=== PATIENT | female | born 1955 | race Caucasian/White ===

== ENCOUNTER 2018-05-20 16:48 | Inpatient (IN) | payer MEDICARE, MEDICAID ==
[~2018-05-20] VITALS: Ht 152.4 cm; Wt 71.2 kg
[2018-05-20] MEDS ORDERED: CLON2TAB11 PO (17:09)
[2018-05-20] MEDS ORDERED: NITR100C11 PO (17:09)
[2018-05-20] MEDS ORDERED: LATUDA PO (17:09)
[2018-05-20] MEDS ORDERED: ATOR40TA PO (17:09)
[2018-05-20] MEDS ORDERED: LEVO100T10 PO (17:09)
[2018-05-20] MEDS ORDERED: DOCU100C36 PO (17:09)
--- NOTE | 2018-05-20 17:23 | NUR ---
PT IS IN ROOM #2A. DR GAYTAN EVALUATED THE PT.
[2018-05-20] MEDS ORDERED: predniSONE 20 MG TABLET PO ONE (17:30)
[2018-05-20] MEDS ORDERED: HYDROCODONE/APAP 10-325 MG TABLET PO ONE (17:30)
[2018-05-20] MEDS ORDERED: ONDANSETRON ODT 4 MG TAB.RAPDIS SL ONE (17:30)
[2018-05-20 18:00] LABS: BASOPHILS % (AUTO) 0.8 % (0.0-2.0); EOSINOPHILS # (AUTO) 0.1 K/uL (0.0-0.7); EOSINOPHILS % (AUTO) 1.6 % (0.0-7.0); HEMATOCRIT 34.6 % (31.2-41.9); HEMOGLOBIN 11.7 g/dL (10.9-14.3); LYMPHOCYTES # (AUTO) 1.9 K/uL (20.0-40.0); LYMPHOCYTES % (AUTO) 33.7 % (20.5-51.5); MEAN CORPUSCULAR HEMOGLOBIN 27.7 uug (24.7-32.8); MEAN CORPUSCULAR HGB CONC 34 g/dL (32.3-35.6); MEAN CORPUSCULAR VOLUME 81.9 fL (75.5-95.3); MONOCYTES # (AUTO) 0.4 K/uL (2.0-10.0); MONOCYTES % (AUTO) 7.4 % (0.0-11.0); NEUTROPHILS # (AUTO) 3.2 K/uL (1.8-8.9); NEUTROPHILS % (AUTO) 56.5 % (38.5-71.5); PLATELET COUNT (AUTO) 238 K/uL (179-408); RED BLOOD CELL COUNT(AUTO) 4.23 MIL/uL (3.63-4.92); WHITE BLOOD COUNT (AUTO) 5.6 K/uL (3.8-11.8)
[2018-05-20 18:06] LABS: *BILIRUBIN,URIN NEGATIVE (NEGATIVE); *BLOOD, URINE NEGATIVE (NEGATIVE); *COLOR,URINE YELLOW (YELLOW); *KETONES,URINE NEGATIVE (NEGATIVE); *PROTEIN,URINE NEGATIVE (NEGATIVE); *UROBILINOGEN,URINE 0.2 E.U./dl (NORMAL); LEUKOCYTE ESTERASE ,URINE TRACE (NEGATIVE); NITRITE, URINE NEGATIVE (NEGATIVE); UGLUCOSE NEGATIVE (NEGATIVE)
[2018-05-20 18:11] LABS: *CLARITY,URINE SLIGHTLY CLOUDY (CLEAR)
[2018-05-20 18:14] LABS: CREATININE 1.4 mg/dL (0.6-1.3)
[2018-05-20 18:15] LABS: BACTERIA,URINE FEW /HPF (NONE SEEN); RBC,URINE 0-3 /HPF (0-3); SQUAMOUS EPITHELIAL CELL,UR MODERATE /HPF (NONE SEEN)
[2018-05-20 18:20] LABS: BILIRUBIN,TOTAL 0.4 mg/dL (0.2-1.0)
--- NOTE | 2018-05-20 18:58 | NUR ---
REPORT GIVEN TO AIRPLANE INSPECTOR RN.
--- NOTE | 2018-05-20 19:50 | NUR ---
Pt. admitted to [facility] , under care of Dr. Doss/[employer]. Pt on 5150 hold DTO. Diagnosis: Psychosis Belongs List completed. MRSA swab done.
[2018-05-20 20:00] VITALS: BP 143/72
--- NOTE | 2018-05-20 21:00 | NUR ---
AT APPROX 1945, ADMITTED 62 YEARS OLD FEMALE FROM [facility] ON A 5150 HOLD FOR DTS. HOLD STARTED ON 05/20/18 AT 1400 AND WILL END ON 05/23/18 AT 1400. PER HOLD, PATIENT WENT TO [facility] ER D/T SEVERE BACK PAIN, BUT THEN, SHE REPORTED TO THE NURSE THAT, "I AM READY TO ." "I WANT TO END ALL." SHE ALSO REPORTED THAT LAST WEEK SHE WAS [facility] AFTER SHE OD ON 32 CLONAZEPAM 1MG. PER HOLD, PATIENT HAS BEEN HOPELESS SINCE LOST OF HER APARTMENT. PT HAS A HX OF BIPOLAR DISORDER. HER LAST RX OF LATUDA SHE STATED, "DID NOT AGREE WITH ME". FACE TO FACE ASSESSMENT WAS DONE. AT TIME OF ADMISSION, PATIENT NOTED A/O X 2 (NAME AND SITUATION) SHE WAS CRYING, LOW MOOD, LABILE BX BLUNTED AFFECT. UPONM INTERVIEW, SHE STATED, "I WANT TO ". WHEN ASK ABOUT A PLAN, SHE STATED, "THE MOMENT I AM OUT OF HERE I AM GOING TO TAKE LOTS OF PILL". PATIENT WAS ABLE TO SIGN ADMISSION PAPERS. SHE REFUSED TO HAVE ANY FAMILY MEMBERS NOTIFY OF HER ADMISSION TO [facility]. SHE STATED, "I DO NOT WANT THEM TO KNOW I AM HERE BECAUSE THEY ARE ALREADY MAD AT ME." PATIENT WAS REASSURED AND REDIRECTED. SHE REFUSED FLU VACCINE. PATIENT IS UNDER THE CARE OF DR GUY. YARELI REDDY TO MONITOR.
[2018-05-20] MEDS: CLONAZEPAM 0.5 MG TABLET PO PRN (21:21)
--- NOTE | 2018-05-20 21:25 | NUR ---
PATIENT NOTED ANXIOUS AGITATED CRYING, KLONOPIN 0.5MG PO PRN WAS GIVEN. WILL CONTINUE TO MONITOR.
--- NOTE | 2018-05-20 22:05 | NUR ---
PATIENT C/O LOWER BACK PAIN, SHE STATED 7/10 IN THE PAIN INTENSITY SCALE. PT HAD NORCO EARLIER IN THE ER AT APPROX 1730. TYLENOL 650 MG PO PRN WAS GIVEN. WILL CONTINUE TO MONITOR.
[2018-05-20] MEDS: ACETAMINOPHEN 325 MG TABLET PO PRN (22:09)
[2018-05-20] MEDS: TEMAZEPAM 7.5 MG CAPSULE PO PRN (23:19)
--- NOTE | 2018-05-20 23:20 | NUR ---
PATIENT REPORTED THAT SHE WAS UNABLE TO FALL ASLEEP. TEMAZEPAM 7.5MG PO PRN WAS GIVEN FOR INSOMNIA. WILL CONTINUE TO MONITOR.
[2018-05-21] MEDS: ACETAMINOPHEN 325 MG TABLET PO PRN ×2 (05:12→10:57)
[2018-05-21] MEDS: CLONAZEPAM 0.5 MG TABLET PO PRN ×3 (05:17→18:37)
--- NOTE | 2018-05-21 06:44 | NUR ---
PATIENT SLEPT FOR APPROX 4.45 HRS THROUGH THE NIGHT. KLONOPIN 0.5MG PO PRN FOR ANXIETY WAS GIVEN AT APPROX 0530. WILL CONTINUE TO MONITOR ADRIANA
[2018-05-21 07:30] VITALS: BP 137/50
[2018-05-21] MEDS: DOCUSATE SODIUM 100 MG CAPSULE PO SCH (10:57)
[2018-05-21] MEDS: LEVOTHYROXINE SODIUM 100 MCG TABLET PO SCH (10:57)
[2018-05-21] MEDS: NITROFURANTOIN/NITROFURAN MAC 100 MG CAPSULE PO SCH ×2 (10:57→21:01)
[2018-05-21] MEDS: GABAPENTIN 100 MG CAPSULE PO SCH ×2 (11:16→16:25)
[2018-05-21] MEDS: CYCLOBENZAPRINE HCL 10 MG TABLET PO SCH ×2 (11:16→16:25)
[2018-05-21] MEDS: ARIPIPRAZOLE 5 MG TABLET PO SCH (16:28)
[2018-05-21] MEDS: NAPROXEN 250 MG TABLET PO PRN (16:34)
[2018-05-21 16:59] VITALS: BP 133/61
[2018-05-21 20:49] VITALS: BP 99/56
[2018-05-21] MEDS: ATORVASTATIN 40 MG TABLET PO SCH (21:01)
[2018-05-21] MEDS: TEMAZEPAM 7.5 MG CAPSULE PO PRN (21:01)
[2018-05-22] MEDS: CLONAZEPAM 0.5 MG TABLET PO PRN ×2 (02:49→09:53)
--- NOTE | 2018-05-22 06:04 | NUR ---
Pt stayed in her bed the entire shift except to come ask for meds or ice. Pt complained of pain in her back radiating down to her L leg. Pt states that the pain med the doctor has prescribed is not working. Pt req norco. Pt was informed that ad copy writer cannot give more meds before they are due and to speak to the doctor when he arrives. Pt also states that she has not had a BM in 6 days. Security Nurse offered PRN's but pt refused. Pt is req a specific med for constipation.
[2018-05-22] MEDS: LEVOTHYROXINE SODIUM 100 MCG TABLET PO SCH (06:53)
[2018-05-22 07:30] VITALS: BP 124/72
[2018-05-22] MEDS: DOCUSATE SODIUM 100 MG CAPSULE PO SCH ×2 (09:00→09:48)
[2018-05-22] MEDS: NITROFURANTOIN/NITROFURAN MAC 100 MG CAPSULE PO SCH ×2 (09:46→21:43)
[2018-05-22] MEDS: ARIPIPRAZOLE 5 MG TABLET PO SCH (09:47)
[2018-05-22] MEDS: CYCLOBENZAPRINE HCL 10 MG TABLET PO SCH ×3 (09:48→17:50)
[2018-05-22] MEDS: GABAPENTIN 100 MG CAPSULE PO SCH ×3 (09:48→17:51)
[2018-05-22] MEDS: ACETAMINOPHEN 325 MG TABLET PO PRN ×2 (09:54→17:50)
[2018-05-22] MEDS: MAGNESIUM HYDROXIDE 30 ML LIQUID UDC PO PRN (13:07)
[2018-05-22] MEDS: NAPROXEN 250 MG TABLET PO PRN (13:08)
[2018-05-22] MEDS ORDERED: BISACODYL 10 MG SUPP.RECT RC PRN (14:30)
[2018-05-22] MEDS ORDERED: CLONAZEPAM 0.5 MG TABLET PO PRN (14:45)
--- NOTE | 2018-05-22 16:05 | NUR ---
Firearms Report: Stenographer Secretary completed and submitted [employer] Firearms Report for 5150 DTS certification.
--- NOTE | 2018-05-22 16:19 | NUR ---
Initial Discharge Plan: Per patient, she feels she cannot live with sister because its not a good environment for me would like to go to a board and care or transitional housing. Sw, spoke with mother, Eileen Taylor and pt is probably still welcome to stay with sister, Eileen Arellano in [place]. Pt was supposed to be on a flight to [place] on 05/22/18 to reside with mother but missed flight due to hospitalization. TANVIR will collaborate with interdisciplinary team and MD to ensure pt receives a safe and adequate discharge.
[2018-05-22 16:22] VITALS: BP 124/70
[2018-05-22] MEDS ORDERED: TRAMADOL HCL 50 MG TABLET PO ONE (17:45)
[2018-05-22] MEDS: LIDOCAINE 5% PATCH TD SCH (17:50)
[2018-05-22] MEDS ORDERED: NAPROXEN 250 MG TABLET PO SCH (18:00)
--- NOTE | 2018-05-22 18:39 | NUR ---
patient very med seeking every 2 to 3 hours wanting narcotics any thing needs redirection c/o mid back pain and constipation recd mom and dulcolax suppository as ordered in room sleeping and up for meds only
[2018-05-22 19:30] VITALS: BP 127/71
[2018-05-22] MEDS: ATORVASTATIN 40 MG TABLET PO SCH (21:43)
[2018-05-22] MEDS: MIRALAX 17 GM POWD.PACK PO PRN (21:43)
[2018-05-22] MEDS: TRAMADOL HCL 50 MG TABLET PO SCH (21:44)
[2018-05-22] MEDS: TEMAZEPAM 7.5 MG CAPSULE PO PRN (21:51)
[2018-05-22] MEDS: CLONAZEPAM 1 MG TABLET PO PRN (22:52)
[2018-05-23] MEDS: MAG HYDROX/AL HYDROX/SIMETH 30 ML LIQUID UDC PO PRN ×3 (01:37→20:23)
[2018-05-23] MEDS: CLONAZEPAM 1 MG TABLET PO PRN ×3 (05:47→18:25)
[2018-05-23] MEDS: TRAMADOL HCL 50 MG TABLET PO SCH ×3 (05:47→21:27)
--- NOTE | 2018-05-23 06:03 | NUR ---
Pt still has not had a BM, pt received MOM, dulcolax suppository and miralax yesterday, it was not effective, pt is complaining of abdominal pain that is worsening 01/06, pt states this is the 7th or 8th day with no BM. EPIC doctor contacted at 5:55am, states placing a order for KUG (abominal X-ray), states that if it shows impaction recommend manual disimpaction. I will endorse to the next shift.
[2018-05-23] MEDS: LEVOTHYROXINE SODIUM 100 MCG TABLET PO SCH (06:26)
[2018-05-23 07:30] VITALS: BP 118/67
[2018-05-23] MEDS: NITROFURANTOIN/NITROFURAN MAC 100 MG CAPSULE PO SCH ×2 (08:34→20:24)
[2018-05-23] MEDS: CYCLOBENZAPRINE HCL 10 MG TABLET PO SCH ×3 (08:34→16:34)
[2018-05-23] MEDS: DOCUSATE SODIUM 100 MG CAPSULE PO SCH (08:34)
[2018-05-23] MEDS: GABAPENTIN 100 MG CAPSULE PO SCH ×3 (08:34→16:33)
[2018-05-23] MEDS: LIDOCAINE 5% PATCH TD SCH (08:34)
[2018-05-23] MEDS: ARIPIPRAZOLE 5 MG TABLET PO SCH (08:34)
[2018-05-23] MEDS: MAGNESIUM HYDROXIDE 30 ML LIQUID UDC PO PRN (10:26)
[2018-05-23] MEDS: LACTULOSE 20 G/30 ML LIQUID UDC PO SCH ×2 (11:33→20:25)
--- NOTE | 2018-05-23 14:50 | NUR ---
Discharge Planning: warm in worker spoke with patient this morning about discharge plan. Per patient, she would like to go to a board and care or independent living. Patient states she has $800-$850 to put toward facility cost. warm in worker reached out to Rupali [[phone]], social insurance analyst, at [facility] who states she will assist patient in finding a living facility. Per Rupali, she will be out to speak with patient tomorrow, 05/24/2018, at noon.
[2018-05-23] MEDS ORDERED: TEMAZEPAM 7.5 MG CAPSULE PO PRN (15:00)
[2018-05-23 16:23] VITALS: BP 115/65
[2018-05-23] MEDS: PANTOPRAZOLE SODIUM 40 MG TABLET.DR PO SCH (16:34)
--- NOTE | 2018-05-23 18:26 | NUR ---
Gps.Manager Flight- Patient moved her bowel this pm, claimed she probably will go some more , and she thinks she might need more laxative . Informed patient no need for laxative at this me , adequate fluid intack good bowel sounds. Had been compliant with routine meds complained of lower back and occ. upper back pain. Patient noted medications seeking.
[2018-05-23 20:00] VITALS: BP 118/64
--- NOTE | 2018-05-23 20:00 | NUR ---
PT IN ROOM ALERT AWAKE IN NO ACUTE DISTRESS. STATES SHE STILL HAS A FEELING OF "STOMACH UPSET". STATES SHE RECENTLY HAD A BM AND WANTS ROUTINE LACTULOSE ON HOLD FOR TONIGHT. NO ACTIVE SUICIDAL IDEATIONS PRESENT. ABLE TO MAKE NEEDS KNOWN. PT OFFERED MEDICATIONS WHEN REQUESTED IN APPROPRIATE TIMES. WILL CONTINUE TO MONITOR.
[2018-05-23] MEDS: OLANZAPINE 5 MG TABLET PO SCH (20:24)
[2018-05-23] MEDS: ATORVASTATIN 40 MG TABLET PO SCH (20:24)
[2018-05-23] MEDS: TEMAZEPAM 15 MG CAPSULE PO PRN (21:27)
--- NOTE | 2018-05-24 00:30 | NUR ---
Pt out in hallways several times pacing asking when next klonopin, pain medication, and something for stomach upset is due. Pt reminded of available time frames regarding medications.
[2018-05-24] MEDS: CLONAZEPAM 1 MG TABLET PO PRN ×4 (00:55→20:07)
[2018-05-24] MEDS: MAG HYDROX/AL HYDROX/SIMETH 30 ML LIQUID UDC PO PRN (02:25)
[2018-05-24] MEDS: TRAMADOL HCL 50 MG TABLET PO SCH ×4 (04:57→21:51)
--- NOTE | 2018-05-24 06:00 | NUR ---
Pt noted with no hours of sleep. Attempts to get out of room wandering down hallway several times c/o hunger pain. Pt offered several medications available when needed r/t pt needs. Reminded pt next time it is due. Encouraged to rest and to wait.
[2018-05-24] MEDS: LEVOTHYROXINE SODIUM 100 MCG TABLET PO SCH (06:38)
[2018-05-24] MEDS: PANTOPRAZOLE SODIUM 40 MG TABLET.DR PO SCH (06:38)
[2018-05-24 07:30] VITALS: BP 94/64
[2018-05-24] MEDS: LIDOCAINE 5% PATCH TD SCH (08:23)
[2018-05-24] MEDS: LACTULOSE 20 G/30 ML LIQUID UDC PO SCH ×2 (08:24→20:10)
[2018-05-24] MEDS: NITROFURANTOIN/NITROFURAN MAC 100 MG CAPSULE PO SCH ×2 (08:24→20:07)
[2018-05-24] MEDS: GABAPENTIN 100 MG CAPSULE PO SCH ×3 (08:24→16:36)
[2018-05-24] MEDS: DOCUSATE SODIUM 100 MG CAPSULE PO SCH (08:24)
[2018-05-24] MEDS: CYCLOBENZAPRINE HCL 10 MG TABLET PO SCH (08:24)
[2018-05-24] MEDS: METHOCARBAMOL 750 MG TABLET PO PRN ×3 (12:22→20:07)
[2018-05-24 15:57] VITALS: BP 138/61
[2018-05-24] MEDS: ATORVASTATIN 40 MG TABLET PO SCH (20:07)
[2018-05-24] MEDS: OLANZAPINE 5 MG TABLET PO SCH (20:35)
[2018-05-24] MEDS: TEMAZEPAM 15 MG CAPSULE PO PRN (21:50)
--- NOTE | 2018-05-24 22:00 | NUR ---
PATIENT REQUESTING SLEEPING PILL. GIVEN RESTORIL 15MG PO PRN FOR SLEEP. WILL CONTINUE TO MONITOR AND ASSESS.
[2018-05-24 22:32] VITALS: BP 105/59
[2018-05-25] MEDS: CLONAZEPAM 1 MG TABLET PO PRN ×3 (02:22→18:44)
[2018-05-25] MEDS: TRAMADOL HCL 50 MG TABLET PO SCH ×3 (05:49→21:36)
[2018-05-25] MEDS: PANTOPRAZOLE SODIUM 40 MG TABLET.DR PO SCH (06:05)
[2018-05-25] MEDS: LEVOTHYROXINE SODIUM 100 MCG TABLET PO SCH (06:05)
[2018-05-25 07:30] VITALS: BP 109/60
[2018-05-25] MEDS: DOCUSATE SODIUM 100 MG CAPSULE PO SCH (08:24)
[2018-05-25] MEDS: GABAPENTIN 100 MG CAPSULE PO SCH ×3 (08:24→17:04)
[2018-05-25] MEDS: LACTULOSE 20 G/30 ML LIQUID UDC PO SCH ×2 (08:24→20:09)
[2018-05-25] MEDS: LIDOCAINE 5% PATCH TD SCH (08:30)
--- NOTE | 2018-05-25 09:34 | NUR ---
Gps/Supervisor Epoxy Fabrication- Patient complaining she didnt move her bowels this am. informed and instructed drinks more fluids, prune juice offered , requesting more laxative,. Informed patient she had already diarrhrea yesterday from taking laxatives, claimed she wants to have more. Informed patient her abdominal x-ray WNL.Patient meds.seeking kept asking for any meds. that is due she wants to take .
[2018-05-25] MEDS: METHOCARBAMOL 750 MG TABLET PO PRN (10:20)
[2018-05-25] MEDS ORDERED: ZOLPIDEM 5 MG TABLET PO PRN (12:15)
[2018-05-25 15:35] VITALS: BP 123/74
--- NOTE | 2018-05-25 17:40 | NUR ---
Gps/Resourcing Consultant- Interacting with her roommate, less lower back pain . Less needy this pm. Had been cooperative with staff.
--- NOTE | 2018-05-25 17:57 | NUR ---
Gps/Tank Insulator Rubber- Patient constantly asking for food to eat, adequate fluid intake .No Complaints noted about her bowels this pm.
--- NOTE | 2018-05-25 19:40 | NUR ---
RECEIVED PATIENT IN THE DAY ROOM WATCHING TV. SHE IS NOTED A/O X 3. SHE IS ABLE TO AMBULATE WITH STEADY GAIT AND ABLE TO MAKE HER NEEDS KNOWN. SHE IS NOTED WITH LOW MOOD, SAD FACE. UPON INTERVIEW SHE STATED THAT SHE CONTINUE HAVING THOUGHT TO HARM SELF BY OD ON HER MEDICATIONS. PATIENT WAS REASSURED AND REDIRECTED, SHE IS ABLE TO CFS. SAFETY WAS EMPHASIS. WILL CONTINUE TO MONITOR CLOSELY.
[2018-05-25] MEDS: OLANZAPINE 5 MG TABLET PO SCH (20:09)
[2018-05-25] MEDS: ATORVASTATIN 40 MG TABLET PO SCH (20:09)
[2018-05-25 20:38] VITALS: BP 110/65
[2018-05-25] MEDS: ZOLPIDEM 5 MG TABLET PO PRN (22:31)
[2018-05-26] MEDS: CLONAZEPAM 1 MG TABLET PO PRN ×3 (00:45→21:19)
--- NOTE | 2018-05-26 00:45 | NUR ---
PATIENT STATED THAT SHE IS UNABLE TO FALL ASLEEP. SHE IS NOTED EASILY IRRITABLE, CRYING, REQUESTING TO CALL HER PSYCH DOCTOR, DR GUY. SHE WAS REDIRECTED, AND REASSURED. KLONOPIN 1MG PO PRN WAS GIVEN FOR ANXIETY, WILL CONTINUE TO MONITOR.
[2018-05-26] MEDS: METHOCARBAMOL 750 MG TABLET PO PRN ×2 (02:07→13:54)
[2018-05-26] MEDS: MAG HYDROX/AL HYDROX/SIMETH 30 ML LIQUID UDC PO PRN (05:14)
[2018-05-26] MEDS: TRAMADOL HCL 50 MG TABLET PO SCH ×3 (06:18→22:04)
[2018-05-26] MEDS: LEVOTHYROXINE SODIUM 100 MCG TABLET PO SCH (06:25)
[2018-05-26] MEDS: PANTOPRAZOLE SODIUM 40 MG TABLET.DR PO SCH (06:26)
[2018-05-26] MEDS ORDERED: PANTOPRAZOLE SODIUM 40 MG TABLET.DR PO SCH (07:00)
--- NOTE | 2018-05-26 07:00 | NUR ---
PATIENT DID NOT SLEEP LAST NIGHT. CONTINUE PREOCCUPIED AND FIXED ON HER PAIN, ANXIETY, AND PRN MEDICATIONS. PATIENT WAS REASSURED AND REDIRECTED. WILL CONTINUE TO MONITOR
[2018-05-26 07:30] VITALS: BP 132/75
[2018-05-26] MEDS: LACTULOSE 20 G/30 ML LIQUID UDC PO SCH ×2 (09:00→20:29)
[2018-05-26] MEDS: DOCUSATE SODIUM 100 MG CAPSULE PO SCH (09:49)
[2018-05-26] MEDS: GABAPENTIN 100 MG CAPSULE PO SCH ×3 (09:49→17:15)
[2018-05-26] MEDS: LIDOCAINE 5% PATCH TD SCH (09:51)
[2018-05-26 15:46] VITALS: BP 120/74
--- NOTE | 2018-05-26 20:00 | NUR ---
RECEIVED PATIENT IN HER ROOM IN BED. SHE IS AWAKE AND NOTED A/O X 3. SHE IS ABLE TO AMBULATE WITH STEADY GAIT AND ABLE TO MAKE HER NEEDS KNOWN. SHE IS NOTED WITH LOW MOOD, PREOCCUPIED AND FIXED ON HER PAIN, ANXIETY, AND PRNs MEDICATION. SHE CONTINUE HAVING VAGUE SI; HOWEVER, SHE IS ABLE TO CFS. SAFETY WAS EMPHASIS. WILL CONTINUE TO MONITOR CLOSELY.
[2018-05-26] MEDS: OLANZAPINE 5 MG TABLET PO SCH (20:29)
[2018-05-26] MEDS: ATORVASTATIN 40 MG TABLET PO SCH (20:29)
[2018-05-26 20:51] VITALS: BP 131/84
[2018-05-26] MEDS: ZOLPIDEM 5 MG TABLET PO PRN (22:24)
[2018-05-27] MEDS: METHOCARBAMOL 750 MG TABLET PO PRN ×2 (02:12→13:41)
[2018-05-27] MEDS: CLONAZEPAM 1 MG TABLET PO PRN ×4 (03:20→22:59)
[2018-05-27] MEDS: LEVOTHYROXINE SODIUM 100 MCG TABLET PO SCH (06:54)
[2018-05-27] MEDS: PANTOPRAZOLE SODIUM 40 MG TABLET.DR PO SCH (06:55)
[2018-05-27] MEDS: TRAMADOL HCL 50 MG TABLET PO SCH ×3 (06:55→22:03)
--- NOTE | 2018-05-27 07:02 | NUR ---
PATIENT SLEPT FOR APPROX 3.30 HRS THROUGH THE NIGHT.
[2018-05-27 07:30] VITALS: BP 127/71
[2018-05-27] MEDS: LACTULOSE 20 G/30 ML LIQUID UDC PO SCH ×2 (09:32→20:25)
[2018-05-27] MEDS: GABAPENTIN 100 MG CAPSULE PO SCH ×3 (09:32→16:49)
[2018-05-27] MEDS: LIDOCAINE 5% PATCH TD SCH (09:32)
[2018-05-27] MEDS: DOCUSATE SODIUM 100 MG CAPSULE PO SCH (09:32)
--- NOTE | 2018-05-27 12:19 | NUR ---
Discharge Planning: signal worker helper spoke with patient about discharge plan. Per patient she would like to go to an independent living once ready. Patient would like the [facility] or [facility]. signal worker helper found one independent living in [place] called [facility] [ph:; fax: [phone]] and spoke with Christa, geological specialist of facility, who states she has one female bed opening and requested patient packet be faxed to her for review. signal worker helper faxed packet. signal worker helper also working with Rupali [[phone]], social and political studies professor, at [facility] who states she has an availability at her [facility]. Patient aware and agreeable with both locations and states she will make a decision. Patient also requested and was provided with the phone number for [facility] [[phone]]. Patient states she has worked with them in the past and that they have helped her with housing. Patient is active in care and social and political studies professor will continue to help patient plan a safe and proper discharge.
[2018-05-27] MEDS: ESCITALOPRAM OXALATE 10 MG TABLET PO SCH (13:45)
[2018-05-27 16:46] VITALS: BP 136/73
[2018-05-27] MEDS: MIRALAX 17 GM POWD.PACK PO PRN (16:49)
[2018-05-27] MEDS: ATORVASTATIN 40 MG TABLET PO SCH (20:25)
[2018-05-27] MEDS: risperiDONE 0.5 MG TABLET PO SCH (20:25)
[2018-05-27 20:37] VITALS: BP 137/60
[2018-05-27] MEDS: TEMAZEPAM 30 MG CAPSULE PO PRN (21:09)
[2018-05-28] MEDS: METHOCARBAMOL 750 MG TABLET PO PRN ×2 (02:57→13:57)
[2018-05-28] MEDS: CLONAZEPAM 1 MG TABLET PO PRN ×3 (05:19→20:37)
[2018-05-28] MEDS: TRAMADOL HCL 50 MG TABLET PO SCH ×3 (05:57→21:56)
[2018-05-28] MEDS: LEVOTHYROXINE SODIUM 100 MCG TABLET PO SCH (06:05)
[2018-05-28] MEDS: PANTOPRAZOLE SODIUM 40 MG TABLET.DR PO SCH (06:05)
--- NOTE | 2018-05-28 06:38 | NUR ---
Pt refused HS Risjackdal, stated, "I don't like the way it makes me feel." education provided regarding the benefits of medication, Pt still refused. optical lab technician aware.
[2018-05-28 07:30] VITALS: BP 128/60
[2018-05-28] MEDS: GABAPENTIN 100 MG CAPSULE PO SCH ×3 (09:12→16:25)
[2018-05-28] MEDS: ESCITALOPRAM OXALATE 10 MG TABLET PO SCH (09:12)
[2018-05-28] MEDS: LACTULOSE 20 G/30 ML LIQUID UDC PO SCH ×2 (09:12→20:24)
[2018-05-28] MEDS: DOCUSATE SODIUM 100 MG CAPSULE PO SCH (09:13)
[2018-05-28] MEDS: LIDOCAINE 5% PATCH TD SCH (09:13)
[2018-05-28 16:59] VITALS: BP 138/70
[2018-05-28 20:14] VITALS: BP 147/68
[2018-05-28] MEDS: risperiDONE 0.5 MG TABLET PO SCH (20:24)
[2018-05-28] MEDS: ATORVASTATIN 40 MG TABLET PO SCH (20:24)
--- NOTE | 2018-05-28 20:42 | NUR ---
gps: patient c/o anxiety. Klonopin 1 mg po given.
--- NOTE | 2018-05-28 21:42 | NUR ---
GPS: PATIENT STATED I AM FEELING BETTER NOW. PRN EFFECTIVE FOR ANXIETY.
[2018-05-28] MEDS: TEMAZEPAM 30 MG CAPSULE PO PRN (23:10)
[2018-05-29] MEDS: METHOCARBAMOL 750 MG TABLET PO PRN ×2 (02:31→10:03)
[2018-05-29] MEDS: TRAMADOL HCL 50 MG TABLET PO SCH (06:25)
[2018-05-29] MEDS: LEVOTHYROXINE SODIUM 100 MCG TABLET PO SCH (06:25)
[2018-05-29] MEDS: PANTOPRAZOLE SODIUM 40 MG TABLET.DR PO SCH (06:25)
--- NOTE | 2018-05-29 06:46 | NUR ---
GPS: REMAIN COOPERATIVE WITH MEDICATION AND CARE.TOOK SHOWER THIS MORNING. PATIENT SLEPT FOR APPROX 3.30 HRS THROUGH THE NIGHT. NO AGITATION NOTED AT THIS TIME . WILL CONTINUE TO MONITOR FOR SAFETY.V/S WNL THIS MORNING.
[2018-05-29 07:30] VITALS: BP 143/73
[2018-05-29] MEDS: CLONAZEPAM 1 MG TABLET PO PRN (07:39)
[2018-05-29 07:55] LABS: BASOPHILS % (AUTO) 0.3 % (0.0-2.0); EOSINOPHILS # (AUTO) 0.2 K/uL (0.0-0.7); EOSINOPHILS % (AUTO) 3.2 % (0.0-7.0); HEMATOCRIT 33.2 % (31.2-41.9); HEMOGLOBIN 11.3 g/dL (10.9-14.3); LYMPHOCYTES # (AUTO) 2.1 K/uL (20.0-40.0); MEAN CORPUSCULAR HEMOGLOBIN 27.6 uug (24.7-32.8); MEAN CORPUSCULAR HGB CONC 34 g/dL (32.3-35.6); MONOCYTES # (AUTO) 0.5 K/uL (2.0-10.0); MONOCYTES % (AUTO) 10.1 % (0.0-11.0); NEUTROPHILS # (AUTO) 2.3 K/uL (1.8-8.9); NEUTROPHILS % (AUTO) 45.4 % (38.5-71.5); PLATELET COUNT (AUTO) 222 K/uL (179-408); WHITE BLOOD COUNT (AUTO) 5.2 K/uL (3.8-11.8)
[2018-05-29] MEDS: GABAPENTIN 100 MG CAPSULE PO SCH (08:32)
[2018-05-29] MEDS: DOCUSATE SODIUM 100 MG CAPSULE PO SCH (08:33)
[2018-05-29] MEDS: LIDOCAINE 5% PATCH TD SCH (08:33)
[2018-05-29] MEDS: LACTULOSE 20 G/30 ML LIQUID UDC PO SCH (08:33)
[2018-05-29 08:37] LABS: BILIRUBIN,TOTAL 0.5 mg/dL (0.2-1.0); CREATININE 1.1 mg/dL (0.6-1.3); MAGNESIUM 1.9 mg/dL (1.8-2.4); PHOSPHOROUS 3.5 mg/dL (2.5-4.9); TOTAL PROTEIN, SERUM 7.2 g/dL (6.4-8.2)
[2018-05-29] MEDS ORDERED: ESCITALOPRAM OXALATE 10 MG TABLET PO SCH (09:00)
[2018-05-29 09:11] LABS: THYROID STIMULATING HORMONE 0.009 mIU/mL (0.358-3.740)
--- NOTE | 2018-05-29 10:36 | NUR ---
Discharge Note: Patient will be discharged back to an independent living [[address] [place] [address]] and Rupali, facility panel raiser operator, will provide transportation at 11:00am. Patient has no contact with her family and chose not to have her mother, Eileen Taylor, notified of discharge to independent living. Patient is alert and oriented x4 and denies any SI/HI. Patient is agreeable with discharge plan. Patient currently does not have any outpatient psychiatrist or primary care physician in the [place] area. environmental services worker has provided patient with a list of Medicare accepting psychiatrist and primary care physicians. Patient was given outpatient mental health resources including [facility] , Bella Blackman , and the National Suicide Prevention Lifeline . Patient was also provided with a brief substance abuse intervention and provided the following resources: [facility] [[address] [place] [address]; Tel. (intake at 9am on Weekdays)], [facility] [[address] [place] [address] ; Tel. ; [address] [place] [address]; ], [facility] [[address] [place] [address]; , ], and Substance Abuse and Mental Health Services Administration (SAMHSA) National Helpline [8-625-068-HELP (1224)].
--- NOTE | 2018-05-29 11:50 | NUR ---
Patient is alert and oriented x4 . Discharge to independent living in stable condition via private car. discharge instruction, medication list and belongings given. Addendum: 05/29/18 at 1221 by LUNA CURIEL RN RN Patient discharged back to an independent living [[address] [place] [address]] at 11:40am.
[2018-05-30] MEDS ORDERED: LEVOTHYROXINE SODIUM 50 MCG TABLET PO SCH (07:00)
== END 2018-05-29 11:40 | DRG 885 ==
LOC: ER 16:49 → GPS 18:41
PROVIDERS: ADMIT Psychiatry & Neurology Psychiatry; ATTEND Internal Medicine
DX: F31.30 Bipolar disorder, current episode depressed, mild or moderate severity, unspecified (principal); N17.0 Acute kidney failure with tubular necrosis; E78.5 Hyperlipidemia, unspecified; G89.29 Other chronic pain; I10 Essential (primary) hypertension; E03.9 Hypothyroidism, unspecified; Z59.0 Homelessness; M48.00 Spinal stenosis, site unspecified
CPT/HCPCS: 36415; 70030-TC; 71045; 74018; 83735; 84100; 84443; 85025; 87086; 93005; A4663; J7512; Q0162